=== PATIENT | female | born 1965 | race Caucasian/White ===

== ENCOUNTER 2024-11-17 12:25 | Outpatient (OUT) | payer OTHER, SELFPAY ==
--- NOTE | 2024-11-17 12:30 | ECG_ITS ---
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
== END 2024-11-17 12:26 | disposition home or self-care (01) ==
PROVIDERS: PCP Family Medicine; Visit Provider Obstetrics & Gynecology
DX: Z01.810 Encounter for preprocedural cardiovascular examination (principal); N95.0 Postmenopausal bleeding; R00.1 Bradycardia, unspecified
CPT/HCPCS: 93005

== ENCOUNTER 2024-11-24 08:55 | Day surgery (SDC) | payer OTHER, SELFPAY ==
[2024-11-17 12:49] VITALS: BP 120/78; PULSE 57; TEMP 36.2; O2SAT 100; BMI 25.0
[2024-11-24 09:05] LABS: Basophils Absolute Auto 0.1 10^3/uL (0.0-0.1); Basophils Percent Auto 2.3 % (0.2-2.0); Eosinophils Absolute Auto 0.1 10^3/uL (0.0-0.7); Eosinophils Percent Auto 2.5 % (0.9-7.0); Hematocrit 43.3 % (36.0-48.0); Hemoglobin 14.3 g/dL (12.0-16.0); Immature Granulocytes Abs Auto 0.01 10^3/uL (0.00-0.03); Immature Granulocytes Pct Auto 0.2 % (0.0-0.5); Lymphocytes Absolute Auto 1.2 10^3/uL (1.2-3.8); Lymphocytes Percent Auto 28.1 % (20.5-60.0); Mean Corpuscular Hemoglobin 30.2 pg (26.7-34.0); Mean Corpuscular Volume 91.4 fL (81.0-99.0); Mean Platelet Volume 9.5 fL (9.5-13.5); Monocytes Absolute Auto 0.3 10^3/uL (0.3-0.8); Monocytes Percent Auto 6.6 % (1.7-12.0); Neutrophils Absolute Auto 2.6 10^3/uL (1.4-6.5); Neutrophils Percent Auto 60.3 % (43.0-75.0); Platelet Count 251 10^3/uL (150-450); Red Blood Count 4.74 10^6/uL (4.20-5.40); Red Cell Distribution Width 12.6 % (11.0-15.0); White Blood Count 4.4 10^3/uL (4.0-11.0)
[2024-11-24 09:26] VITALS: BP 120/64; PULSE 73; TEMP 36.1; O2SAT 100
[2024-11-24] MEDS: LACTATED RINGER'S SOLUTION 1,000 ML 50 ML IV (09:39)
[2024-11-24 11:51] VITALS: BP 101/69; PULSE 61; O2SAT 99
--- NOTE | 2024-11-24 11:54 | PM.ONB ---
Brief Operative Note Date of procedure: 11/24/24 Pre-op diagnosis general: pmb, thickened endometrium Post-op diagnosis: same as pre-op Procedure: NAME OF PROCEDURE: [ D&c hysteroscopy with myosure] PROCEDURE: The patient was taken back to the Operating Room where she was prepped and draped in normal sterile fashion after being placed under general anesthesia without difficulty. She was also placed in the dorsal lithotomy position. A weighted speculum was placed in the patient?s vagina. The anterior lip of the cervix was identified and grasped with a single tooth tenaculum. The patient?s uterus was then sounded roughly to [? 8] cm. The patient was then gently dilated using Hegar dilators. The hysteroscope was passed through the patient?s cervix into the uterus. Both ostia were identified. fluffy appearing endometrium. No gross evidence of malignancy, no gross evidence of polyps or fibroids. The myosure apparatus was placed through the scope, The myosure was engaged and endometrial curretting were removed along with endometrial polyp, The hysteroscope was then removed from the uterus. The endometrial curettings were sent out to pathology. The single tooth tenaculum was then removed from the patient's anterior lip of the cervix where excellent hemostasis was noted. All instruments were removed from the patient?s vagina. The patient tolerated the procedure well. Sponge, lap and needle counts were correct times two. The patient was taken to the Recovery Room in stable condition.Room in stable condition. Anesthesia: CHRISTIAN Surgeon: Kevin Lima Estimated blood loss (mL): 5 Pathology: other (endometrial currettings) Condition: stable Disposition: PACU Urinary Catheter Management Urinary Catheter Management Straight: Cath placed during this visit: no
--- NOTE | 2024-11-24 12:00 | PC.NURSE ---
Peripad intact with scant bloody drainage noted
[2024-11-24 12:06] VITALS: BP 101/76; PULSE 50; O2SAT 100
--- NOTE | 2024-11-24 12:22 | PC.NURSE ---
No increase in drainage on peripad
[2024-11-24 12:36] VITALS: BP 123/77; PULSE 52; O2SAT 100
--- NOTE | 2024-11-24 12:50 | PC.NURSE ---
Up to bathroom and voided without difficulty; bloody in toliet; no clots noted; no increase of drainage on peripad from initial assessment.
== END 2024-11-24 12:40 | disposition home or self-care (01) ==
PROVIDERS: PCP Family Medicine; Visit Provider Obstetrics & Gynecology
PROC: (CPT 952; principal; 2024-11-24 10:25)
DX: N95.0 Postmenopausal bleeding (principal); R93.89 Abnormal findings on diagnostic imaging of other specified body structures; N84.0 Polyp of corpus uteri; Z87.891 Personal history of nicotine dependence
CPT/HCPCS: 58558; 36415; 85025; 88305; J1100; J1885; J2250; J2405; J2704; J3010